=== PATIENT | male | born 1965 | race Caucasian/White ===

== ENCOUNTER 2018-02-21 14:30 | Inpatient (IN) | payer MEDICARE, OTHER ==
[~2018-02-21] VITALS: Ht 182.9 cm; Wt 61.0 kg
[2018-02-21] MEDS ORDERED: SODIUM CHLORIDE FLUSH 10 ML SYR INJ PRN (19:15)
[2018-02-21] MEDS ORDERED: ONDANSETRON HCL INJ 2 MG/ML VIAL IV PRN (19:15)
--- NOTE | 2018-02-21 19:25 | Diagnostic Imaging Report ---
LEFT HUMERUS X-RAY - 2 VIEWS HISTORY: ^L. STUMP WOUND ^[id number] ^[id number] COMPARISON: None available. FINDINGS: Bones: Status post amputation of the distal left humerus. No cortical irregularity at the stump. Osseous alignment is within normal limits. Joints: Severe degenerative changes of the acromioclavicular and glenohumeral joint. Remote posttraumatic deformity of the scapula and humerus. Multiple healed fractures of diffuse left-sided ribs. Soft tissues: Soft tissue defect at the stump. IMPRESSION: Soft tissue defect at the left distal humeral stump without bony abnormalities. Signed by: Dr. Dayana Clay M.D. on 02/21/2018 7:22 PM
--- OUTSIDE RECORDS SUMMARY | 2018-02-21 19:43 | XMS REPORT | Summary of Care ---
Author Author Olu Harden, Sakshi Quinteros Unknown Address Unknown Phone Unavailable Care Team Providers Care Senior Test Analyst Name Role Phone MADAI Vázquez, SIMONE Unavailable Unavailable VIVI Vázquez, HERI Unavailable Unavailable KYA Vázquez, KWAKU Unavailable Unavailable LYSSA Burgos.OIsabel, PANKAJ Unavailable Unavailable PEGGYTER P.A., PETEY Unavailable Unavailable MADAI PEREZ MO, SIMONE Unavailable Unavailable Unavailable Unavailable Functional Status Name Dates Details Functional status health issues are not documented Status: Name Dates Details Cognitive status health issues are not documented Status: Problems Name Dates Details KELLI on CPAP (327.23, G47.33) Status: Active Narcolepsy (347.00, G47.419) Status: Active Shoulder pain (719.41, M25.519) Status: Active Retained orthopedic hardware (V45.89, Z96.9) Status: Active Overuse syndrome of right hand, initial encounter (842.10, S66.911A) Status: Active Rotator cuff tendinitis, right (726.10, M75.81) Status: Active 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, 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 Median nerve neuritis, right (354.1, G56.11) Status: Active Carpal tunnel syndrome (354.0, G56.00) Status: Active Osteomyelitis (730.20, M86.9) Status: Active Soft tissue infection (686.9, L08.9) Status: Active Above elbow amputation status, 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 Quantity: 90 TRINIDAD M.D.HERI * Start : 26-Sep-2012 Active Hydrocodone-Acetaminophen 10-325 MG Oral Tablet TAKE 1 TO 2 TABLETS EVERY 6 HOURS NEEDED FOR PAIN. * Quantity: 120 Refills: 0 TRINIDADSONY VázquezHERI * Start : 20-Jul-2013 Active Butrans 10 MCG/HR Transdermal Patch Weekly PLACE 1 PATCH WEEKLY * Quantity: 4 Refills: 2 TRINIDADSONY Vázquez HERI * Start : 22-Feb-2014 Active Ritalin TABS * Refills: 0 Active Xyrem 500 MG/ML Oral Solution USE DIRECTED. * Quantity: 30 Refills: 0 SIMONE AJ M.D. * Start : 10-Feb-2016 Active Ibuprofen 800 MG Oral Tablet TAKE 1 TABLET EVERY 6 TO 8 HOURS NEEDED. * Quantity: 120 Refills: 1 KYA Vázquez KWAKU * Start : 19-Apr-2016 Active DiazePAM 10 MG Oral Tablet TAKE 1 TABLET 1 HOUR PRIOR TO PROCEDURE. * Quantity: 1 Refills: 0 PETEY RAMIREZ * Start : 19-Apr-2016 Active Ibuprofen 800 MG Oral Tablet TAKE 1 TABLET 3 TIMES DAILY NEEDED. * Quantity: 90 Refills: 0 PANKAJ OMALLEY D.O. * Start : 28-Apr-2016 Active Allergies and Adverse Reactions Name Dates Details No Known Drug Allergies (Allergy) Status: Active Past Medical History Name Dates Details History of carpal tunnel syndrome (V12.49, Z86.69) Status: Resolved Procedures Procedure Dates Details Procedures not documented Immunization Name Dates Details Immunizations not documented Social History Name Dates Details Unknown if ever smoked Vital Signs Date Test Result Details No Known Vitals to report Results Date Description Value Details Results not documented Plan of Care Name Dates Details Planned Observations Planned Goals not documented Interventions Provided Medication Changes* Ibuprofen 800 MG Oral Tablet - Renew Instructions Name Dates Details Instructions not documented Encounters Appointment; SIMONE AJ M.D. Encounter Diagnosis: Problem not documented On: 21-Jan-2016 12:30 Appointment; PETEY HAWKINS P.A. Encounter Diagnosis: Problem not documented On: 19-Apr-2016 10:30 Appointment; LUCIEN FERRER M.D. Encounter Diagnosis: Problem not documented On: 26-Apr-2016 11:00 Appointment; PANKAJ OMALLEY D.O. Encounter Diagnosis: Problem not documented On: 29-Apr-2016 11:00 Appointment; PETEY HAWKINS P.A. Encounter Diagnosis: Problem not documented On: 12-May-2016 11:30 Appointment; KWAKU BOLAND M.D. Encounter Diagnosis: Problem not documented On: 12-May-2016 11:45 Appointment; SIMONE AJ M.D. Encounter Diagnosis: Problem not documented On: 21-Jul-2016 15:00 Appointment; PETEY HAWKINS P.A. Encounter Diagnosis: Problem not documented On: 28-Jul-2016 11:30 Appointment; KWAKU BOLAND M.D. Encounter Diagnosis: Problem not documented On: 29-Sep-2016 10:45 Appointment; KWAKU BOLAND M.D. Encounter Diagnosis: Problem not documented On: 29-Sep-2016 10:45 Appointment; VAISHALI AVALOS P.A. Encounter Diagnosis: Problem not documented On: 23-May-2017 10:15 Appointment; KWAKU BOLAND M.D. Encounter Diagnosis: Problem not documented On: 24-Aug-2017 13:30
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
--- OUTSIDE RECORDS SUMMARY | 2018-02-21 19:43 | XMS REPORT ---
Author Author [facility] Address Unknown Phone Unavailable Care Team Providers Care Ion Implant Machine Operator Name Role Phone Sandor PARIS Unavailable Unavailable CLEO DIAZ Unavailable Unavailable Problems This patient has no known problems. Allergies, Adverse Reactions, Alerts This patient has no known allergies or adverse reactions. Medications This patient has no known medications. Results Test Description Test Time Test Comments Text Results Atomic Results Result Comments HUMERUS LEFT 2+VIEWS 2018-02-21 19:00:00 [facility] [address] [address] Patient Name: GIANFRANCO ESPOSITO MR #: [id number] : 1965 Age/Sex: 52/M Req #: [id number] Adm Physician: Ordered by: UMU PARIS MD Report #: [id number] Location: ER Room/Bed: Procedure: [id number] DX/HUMERUS LEFT 2+VIEWS Exam Date: 02/21/18 Exam Time: 1814 REPORT STATUS: Signed LEFT HUMERUS X-RAY - 2 VIEWS HISTORY: L. STUMP WOUND [id number] COMPARISON: None available. FINDINGS: Bones: Status post amputation of the distal left humerus. No cortical irregularity at the stump. Osseous alignment is within normal limits. Joints: Severe degenerative changes of the acromioclavicular and glenohumeral joint. Remote posttraumatic deformity of the scapula and humerus. Multiple healed fractures of diffuse left-sided ribs. Soft tissues: Soft tissue defect at the stump. IMPRESSION: Soft tissue defect at the left distal humeral stump without bony abnormalities. Signed by: Dr. Andria Quintanilla M.D. on 02/21/2018 7:22 PM Dictated By: ANDRIA QUINTANILLA MD 21 Transcribed By: FIDENCIO on 02/21/181921 COPY TO: UMU PARIS MD CT CERVICAL SPINE W/O CONTRAST 2017-11-14 15:04:08 Examination: CT CERVICAL SPINE WITHOUT CONTRASTHISTORY:Neck injury status post fall.COMPARISON:None.TECHNIQUE: Multidetector helical axial images were obtained without contrastfrom the foramen magnum to T1. Coronal and sagittal reformatted images weredone. Bone and soft tissue windows were evaluated.Dose modulation, iterative reconstruction, and/or weight based adjustment of themA/kV was utilized to reduce the radiation dose to as low as reasonablyachievable.FINDINGS:Alignment:Normal alignment and lordosis..Vertebrae: Normal height and density. No acute fracture, infection orneoplasm..Disc space heights: Normal height..Caliber of spinal canal: Developmentally normal.Posterior fossa and craniocervical junction: Foramen magnum patent. No Chiari 1malformation..Soft tissues: No abnormality..Degenera tive changes:No disc bulge/ herniation or foraminal or canal stenosis.Additional findings:Surgical pins in the left supraclavicular fossa and left mandibular ramus.IMPRESSION:No acute abnormalities.This final report was electronically signed by Dr Susannah Ruiz MD 11/14/20172:57 PMDictated By: MARGARETTE REEDate: 11/14/2017 15:04 CT HEAD W/O CONTRAST 2017-11-14 14:59:58 Examination: CT head without contrastClinical Indication: Status post injury of the left side of the head.Technique: Transaxial noncontrast images from the skull base through the vertexwere obtained. Sagittal and coronal reformatted images were done.Dose modulation, iterative reconstruction, and/or weight based adjustment of themA/kV was utilized to reduce the radiation dose to as low as reasonablyach ievable.Comparison: None.Findings:Scalp: Small left parietal scalp hematoma and laceration. No radiopaque foreignbody.Bones: Intact. No fractures. No blastic or lytic lesions.Brain sulci: Appropriate for patient's age.Ventricles: Normal in size and configuration. No hydrocephalus.Extra-axial space:No abnormalities.Parenchyma:No abnormal densities.No masses, hemorrhage, or acute or chronic cortical-based vascular insults.Suprasellar region: No abnormalities.Craniocervical junction: The foramen magnum is patent. No Chiari onemalformation.Impression:1. Small left parietal scalp hematoma and lacera tion. No radiopaque foreignbody or calvarial fracture.2. No acute intracranial finding, specifically, no hemorrhage.This final report was electronically signed by Dr Susannah Ruiz MD 11/14/20172:53 PMDictated By: Adrian REED: 11/14/2017 14:59
[2018-02-21 19:56] LABS: BASOPHILS # (AUTO) 0.1 (0.0-0.1); BASOPHILS % 0.9 % (0.0-1.0); EOSINOPHILS # (AUTO) 0.4 (0.0-0.4); EOSINOPHILS % 2.9 % (0.0-6.0); HEMATOCRIT 40.8 % (38.2-49.6); HEMOGLOBIN 13.6 g/dL (14.0-18.0); LYMPHOCYTES # (AUTO) 4.3 (1.0-3.2); LYMPHOCYTES % 30.5 % (18.0-39.1); MEAN CORPUSCULAR HEMOGLOBIN 32.8 pg (28-32); MEAN CORPUSCULAR HGB CONC 33.3 g/dL (31-35); MEAN CORPUSCULAR VOLUME 98.3 fL (81-99); MONOCYTES # (AUTO) 1.5 (0.2-0.8); MONOCYTES % 10.5 % (4.4-11.3); NEUTROPHILS # (AUTO) 7.8 (2.1-6.9); NEUTROPHILS % 54.8 % (38.7-80.0); PLATELET COUNT 379 x10e3/uL (140-360); RED BLOOD COUNT 4.15 x10e6/uL (4.3-5.7); RED CELL DISTRIBUTION WIDTH 13.3 % (11.7-14.4)
--- NOTE | 2018-02-21 20:07 | NUR ---
consent signed for picc line and placed on pt's clipboard
[2018-02-21 20:15] LABS: ALANINE AMINOTRANSFERASE 13 IU/L (0-55); ALBUMIN 3.6 g/dL (3.5-5.0); ALKALINE PHOSPHATASE 74 IU/L (40-150); ANION GAP 13.9 mmol/L (8-16); BLOOD UREA NITROGEN 15 mg/dL (7-26); BUN/CREATININE RATIO 18 (6-25); CALCIUM 9.7 mg/dL (8.4-10.2); CARBON DIOXIDE 25 mmol/L (22-29); CHLORIDE 106 mmol/L (98-107); CREATININE, SERUM 0.83 mg/dL (0.72-1.25); EST GLOMERULAR FILTRATION RATE > 60 ML/MIN (60-); GLUCOSE 77 mg/dL (74-118); POTASSIUM 3.9 mmol/L (3.5-5.1); SODIUM 141 mmol/L (136-145)
[2018-02-21] MEDS ORDERED: VANCOMYCIN 1GM/NS 250 ML 250 ML IV SCH (21:00)
[2018-02-21 22:00] VITALS: BP 106/73
[2018-02-21] MEDS ORDERED: PIPER-TAZ 3.375 GM 50 ML IV SCH (22:00)
--- NOTE | 2018-02-21 22:37 | NUR ---
PATIENT RECEIVED FROM EMERGENCY DEPARTMENT PER STRETCHER AT 2130. HE'S ALERT AND ORIENTED X3, NO RESPIRATORY DISTRESS OBSERVED. REDNESS TO THE SPINE, ALLEVYN DRESSING APPLIED TO THE SPINE FOR PRESSURE ULCER PREVENTION. DRESSING INTACT TO THE LEFT ARM STUMP WITH MODERATE AMOUNT OF DRAINAGE AND ODOR OBSERVED, SITE CLEANSE WITH SALINE, WET TO DRY DRESSING APPLIED TO THE STUMP. HE ALSO HAS REDNESS TO THE BUTTOCK, NO PAIN VOICED. HE HAS NO IV ACCESS, AWAITING PICC LINE INSERTION TO ADMINISTER ANTIBIOTICS ORDERED. ORIENTED TO SURROUNDINGS, BED ALARM ON, CALL LIGHT IN EASY REACH, INSTRUCTED TO CALL FOR ASSISTANCE NEEDED.
[2018-02-21 22:55] VITALS: BP 106/73
[2018-02-21] MEDS ORDERED: IBUPROFEN400 MG PO (23:02)
[2018-02-21] MEDS ORDERED: RITALIN10 MG PO (23:02)
[2018-02-21] MEDS ORDERED: CONCERTA54 MG PO (23:02)
--- NOTE | 2018-02-22 00:17 | NUR ---
PICC LINE INSERTED TO THE RIGHT UPPER ARM PER PICC TEAM, AWAITING X-RAY RESULT TO VERIFY PLACEMENT.
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
--- NOTE | 2018-02-22 01:03 | NUR ---
PATIENT IS OFF THE UNIT PER STRETCHER TO RADIOLOGY FOR CT SCAN, WILL ADMINISTER IV ANTIBIOTIC ONCE THE PATIENT GET BACK TO THE UNIT.
[2018-02-22] MEDS: SODIUM CHLORIDE 0.9% 1000ML 1,000 ML IV SCH ×4 (01:35→20:43)
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
[2018-02-22] MEDS ORDERED: SODIUM CHLORIDE 0.9% 50ML 50 ML ONE (02:36)
[2018-02-22] MEDS ORDERED: IOPAMIDOL 370 MG/ML 200 ML INFUS..BTL INJ ONE (02:36)
--- NOTE | 2018-02-22 02:51 | Diagnostic Imaging Report ---
EXAM: CT of the Left Humerus WITH contrast INDICATION: Left Upper Extremity Stump Infection COMPARISON: None. TECHNIQUE: The left humerus was scanned utilizing a multidetector helical scanner after administration of IV contrast. Coronal and sagittal reformations in soft tissue and bone windows were obtained. Routine protocol was performed. IV CONTRAST: 100 mL of Isovue 370 COMPLICATIONS: None RADIATION DOSE: Total DLP: 425.8 mGy*cm CTDIvol has been reviewed. It is below the limits set by the Radiation Protocol Committee (RPC). Dose modulation, iterative reconstruction, and/or weight based adjustment of the mA/kV was utilized to reduce the radiation dose to as low as reasonably achievable. FINDINGS: BONES: Status post amputation of the left arm to the level of the distal humeral diaphysis with disuse demineralization. No erosions, focal demineralization, or periosteal reaction. Ankylosis of the left humeral head with the glenoid and acromion. Multiple old left sided rib fractures. SOFT TISSUES: Soft tissue stranding of the stump likely representing cellulitis. A 1.8 x 0.9 cm peripherally enhancing centrally hypoattenuating collection is noted along the lateral aspect of the stump (axial soft tissue image 94). OTHER: Left apical paraseptal emphysematous changes. Left axillary lymph nodes measure up to 1 cm in short axis, likely reactive. IMPRESSION: 1. No evidence of osteomyelitis. 2. Cellulitis of the left upper extremity stump with possible developing abscess which is too small to drain. Signed by: DR. Aaron Mendez MD on 02/22/2018 2:48 AM
[2018-02-22] MEDS ORDERED: VANCOMYCIN 1GM/NS 250 ML 250 ML IV SCH (03:00)
[2018-02-22 04:00] VITALS: BP 106/71
[2018-02-22] MEDS ORDERED: PIPER-TAZ 3.375 GM 50 ML IV SCH (04:00)
--- NOTE | 2018-02-22 05:00 | NUR ---
NO ACUTE DISTRESS OBSERVED, PATIENT DENIES PAIN TO THE LEFT ARM STUMP. DRESSING INTACT TO THE LEFT ARM STUMP, CALL LIGHT WITHIN EASY REACH.
[2018-02-22 05:20] LABS: BASOPHILS # (AUTO) 0.1 (0.0-0.1); EOSINOPHILS # (AUTO) 0.5 (0.0-0.4); EOSINOPHILS % 3.8 % (0.0-6.0); HEMATOCRIT 34.5 % (38.2-49.6); HEMOGLOBIN 11.7 g/dL (14.0-18.0); LYMPHOCYTES # (AUTO) 4.4 (1.0-3.2); LYMPHOCYTES % 34.5 % (18.0-39.1); MEAN CORPUSCULAR HEMOGLOBIN 33.1 pg (28-32); MEAN CORPUSCULAR HGB CONC 33.9 g/dL (31-35); MEAN CORPUSCULAR VOLUME 97.5 fL (81-99); MONOCYTES # (AUTO) 1.1 (0.2-0.8); MONOCYTES % 8.7 % (4.4-11.3); NEUTROPHILS # (AUTO) 6.7 (2.1-6.9); NEUTROPHILS % 51.8 % (38.7-80.0); PLATELET COUNT 328 x10e3/uL (140-360); RED BLOOD COUNT 3.54 x10e6/uL (4.3-5.7); RED CELL DISTRIBUTION WIDTH 13.2 % (11.7-14.4)
[2018-02-22 05:38] LABS: INR 0.83; PROTHROMBIN TIME 12.2 seconds (11.9-14.5)
[2018-02-22 05:39] LABS: PARTIAL THROMBOPLASTIN TIME 33.5 seconds (23.8-35.5)
[2018-02-22 05:48] LABS: ALANINE AMINOTRANSFERASE 10 IU/L (0-55); ALBUMIN 2.7 g/dL (3.5-5.0); ALBUMIN/GLOBULIN RATIO 0.9 (0.8-2.0); ALKALINE PHOSPHATASE 71 IU/L (40-150); ANION GAP 12.6 mmol/L (8-16); BLOOD UREA NITROGEN 16 mg/dL (7-26); BUN/CREATININE RATIO 19 (6-25); CALCIUM 8.3 mg/dL (8.4-10.2); CARBON DIOXIDE 23 mmol/L (22-29); CHLORIDE 106 mmol/L (98-107); CREATININE, SERUM 0.84 mg/dL (0.72-1.25); EST GLOMERULAR FILTRATION RATE > 60 ML/MIN (60-); GLUCOSE 110 mg/dL (74-118); POTASSIUM 3.6 mmol/L (3.5-5.1); SODIUM 138 mmol/L (136-145)
[2018-02-22 07:52] VITALS: BP 117/69
[2018-02-22] MEDS: PIPER-TAZ 3.375 GM 50 ML IV SCH ×2 (08:15→16:50)
--- NOTE | 2018-02-22 10:29 | NUR ---
ATTEMPTED TO INTERVIEW PATIENT, WROTE NAME ON BOARD PT SLEEPING, DID NOT WANT TO DISTURB SO WILL FOLLOW UP AT LATER TIME. MOTHER IS SHELBY [phone].
[2018-02-22 11:24] VITALS: BP 110/59
[2018-02-22] MEDS ORDERED: IBUPROFEN 400 MG TAB PO PRN (13:30)
[2018-02-22] MEDS ORDERED: INFLUENZA VIRUS VAC SPLIT INJ 0.5 ML SYR IM ONE (13:30)
[2018-02-22] MEDS ORDERED: METHYLPHENIDATE HCL 10 MG TAB PO SCH (13:30)
[2018-02-22] MEDS: NICOTINE 21 MG/EA PATCH TOP SCH (14:25)
[2018-02-22] MEDS: VANCOMYCIN 1GM/NS 250 ML 250 ML IV SCH (14:25)
[2018-02-22 15:17] VITALS: BP 106/64
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
--- NOTE | 2018-02-22 18:27 | NUR ---
NOTIFIED REGARDING CONSULT MD STATES HE WAS NEVER NOTIFIED,
[2018-02-22 20:00] VITALS: BP 108/61
[2018-02-23] VITALS (7 sets, daily range): BP systolic 101–135; BP diastolic 46–86
[2018-02-23] MEDS: PIPER-TAZ 3.375 GM 50 ML IV SCH ×2 (01:24→08:21)
[2018-02-23] MEDS: VANCOMYCIN 1GM/NS 250 ML 250 ML IV SCH ×2 (02:51→14:00)
[2018-02-23] MEDS: SODIUM CHLORIDE 0.9% 1000ML 1,000 ML IV SCH ×3 (03:11→15:04)
--- NOTE | 2018-02-23 03:18 | NUR ---
walking rounds performed on patient. patient is resting comfortably in the bed. no complaints of pain or discomfort noted. will continue to monitor patient.
[2018-02-23] MEDS: METHYLPHENIDATE HCL 54 MG PO SCH (08:26)
[2018-02-23] MEDS: NICOTINE 21 MG/EA PATCH TOP SCH (08:30)
[2018-02-23] MEDS ORDERED: METHYLPHENIDATE HCL 54 MG PO SCH (09:00)
[2018-02-23] MEDS ORDERED: CEFEPIME HCL 1 GM VIAL IV SCH (10:15)
--- NOTE | 2018-02-23 10:15 | NUR ---
Canary Raiser to bedside to discuss plan of care with patient/family. CM/SW role and care transitions discussed. Anticipated discharge plan discussed along with duration of care. CM/SW discussed patients right to make decisions in care. CM/SW work hours given. Patient lives: with dad Nomi Admit/Transfer: thru ED, from home POA/Emergency contact: heather Mondragon [phone] Current/Previous Home Health: none PCP/Follow-up Care: Dr. Guo Current/Previous DME: none; independent Other Services: none Employment Status: self-employed Areas of Concerns: none Referral Needs: none Education Needs: wound care IMM/LEWIS given and signed (if applicable): none at this time Goal for discharge: home; dad will provide transportation CM/SW left business card at the bedside with contact information. Name and number was also written on the patients whiteboard. Patient verbalized understanding of discussion. CM will follow-up with ongoing discharge and transition of care needs
[2018-02-23] MEDS: CEFEPIME 1GM/NS 0.9% 50 ML 50 ML IV SCH ×2 (10:18→22:49)
[2018-02-23] MEDS: METHYLPHENIDATE HCL 10 MG TAB PO SCH ×3 (11:33→22:49)
[2018-02-23] MEDS ORDERED: BACITRACIN 50,000 UNIT VIAL ONE (13:15)
[2018-02-23] MEDS ORDERED: MUPIROCIN 2% OINT 22 GM TUBE ONE (13:55)
[2018-02-23] MEDS ORDERED: VANCOMYCIN 1GM/NS 250 ML 250 ML ONE (14:03)
--- NOTE | 2018-02-23 14:20 | Consultation ---
DATE OF CONSULTATION: REASON FOR CONSULT: Left upper arm amputation stump infection. 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 He wears a prosthesis, which sits on the distal aspect of the humerus and upper arm. He states that about 2 months ago he fell off of a scaffolding while he had his prosthesis on, and he noticed bruising at the distal aspect of the amputation stump. Over the course of the past 2 weeks, this area of bruising has become foul smelling. He has noticed tenderness, warmth and redness of the lower half of the amputation stump. He was self-treating himself with topical antibiotic ointment. The infection progressed to the point where he went to the emergency room on February 21, 2018, and was admitted at approximately 7 p.m. The consult for me was first obtained yesterday afternoon. I am now seeing the patient for amputation stump infection. PAST MEDICAL HISTORY: As noted above. PAST SURGICAL HISTORY: As noted above. PHYSICAL EXAMINATION VITALS: He has a low-grade fever. EXTREMITIES: Exam of the left amputation stump shows cellulitis involving the lower third of the amputation stump. There is a frankly necrotic palpable full-thickness area measuring approximately 5-6 cm in diameter on the most inferior aspect of the stump. Palpitation shows that the distal end of the humerus is directly under this area of necrotic tissue. The patient has no purulent drainage. However, the wound is malodorous. He underwent radiograph and a CT scan, which shows no drainable collection, but significant soft tissue infection. White blood cell count was 14 on admission and is now 13 since starting IV antibiotics. IMPRESSION: Amputation stump infection with probable full-thickness necrosis. PLAN: I have discussed with the patient the need to debride the stump thoroughly. This will most likely leave a full-thickness defect, which cannot be closed primarily, and that the humerus will need to be shortened. He is aware of this and will be kept n.p.o., and taken to the OR later today for urgent treatment. Thank you for allowing me to participate in the care of your patient. Job#: [id number]
[2018-02-23] MEDS ORDERED: ONDANSETRON HCL INJ 2 MG/ML VIAL ONE (18:22)
[2018-02-23] MEDS ORDERED: NEOSTIGMINE 5 MG/5ML SYR ONE (18:22)
[2018-02-23] MEDS ORDERED: MORPHINE SULFATE INJ 10 MG/ML ONE (18:22)
[2018-02-23] MEDS ORDERED: PROPOFOL IV EMULSION 10 MG/ML 20 ML VIAL ONE (18:22)
[2018-02-23] MEDS ORDERED: METOCLOPRAMIDE HCL 10 MG/2ML VIAL ONE (18:22)
[2018-02-23] MEDS ORDERED: GLYCOPYRROLATE INJ 1MG/ 5 ML SYR ONE (18:22)
[2018-02-23] MEDS ORDERED: MIDAZOLAM HCL 2 MG/2 ML VIAL ONE (18:22)
[2018-02-23] MEDS ORDERED: DEXAMETHASONE SOD PHOS INJ 4 MG/ML VIAL ONE (18:22)
[2018-02-23] MEDS ORDERED: SEVOFLURANE INHAL SOLN 250 ML PEN BTL ONE (18:22)
[2018-02-23] MEDS ORDERED: LIDOCAINE HCL 2% LOCAL INJ 5 ML SDV VIAL INJ ONE (18:22)
[2018-02-23] MEDS ORDERED: FENTANYL CITRATE/PF 100MCG/2 ML INJ ONE (18:22)
[2018-02-23] MEDS ORDERED: KETOROLAC TROMETHAMINE 30 MG/ML VIAL ONE (18:22)
[2018-02-23] MEDS ORDERED: SUCCINYLCHOLINE 200 MG/10 ML SYR ONE (18:22)
[2018-02-24] VITALS (7 sets, daily range): BP systolic 110–129; BP diastolic 57–77
[2018-02-24] MEDS: VANCOMYCIN 1GM/NS 250 ML 250 ML IV SCH ×2 (02:03→14:12)
[2018-02-24] MEDS: HYDROCODONE/APAP 5MG-325MG TAB PO PRN ×2 (04:29→10:17)
--- NOTE | 2018-02-24 06:00 | NUR ---
patient complaining of severe pain in the left shoulder. paged, awaiting call back. will continue to monitor patient's pain.
--- NOTE | 2018-02-24 07:05 | NUR ---
walking rounds made with the night nurse, patient aware of shift change. Patient in no distress, call diaz within reach.
[2018-02-24] MEDS: CEFEPIME 1GM/NS 0.9% 50 ML 50 ML IV SCH ×2 (10:00→22:00)
[2018-02-24] MEDS: NICOTINE 21 MG/EA PATCH TOP SCH (10:00)
[2018-02-24] MEDS: METHYLPHENIDATE HCL 10 MG TAB PO SCH ×4 (10:00→22:00)
[2018-02-24] MEDS ORDERED: HOME MEDICATION--PATIENTS OWN ONE (10:12)
[2018-02-24] MEDS: METHYLPHENIDATE HCL 54 MG PO SCH (10:17)
[2018-02-24] MEDS: SODIUM CHLORIDE 0.9% 1000ML 1,000 ML IV SCH ×2 (11:11→18:07)
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
--- NOTE | 2018-02-24 21:05 | NUR ---
NO ACUTE DISTRESS OBSERVED, PATIENT DENIES PAIN. RANI WRAP DRESSING DRY AND INTACT TO THE LEFT ARM STUMP WITH BLEEDING OR DRAINAGE. CALL LIGHT IN EASY REACH, PATIENT INSTRUCTED TO CALL FOR ASSISTANCE NEEDED.
[2018-02-25] VITALS (7 sets, daily range): BP systolic 113–131; BP diastolic 61–89
--- NOTE | 2018-02-25 01:02 | NUR ---
WALKING ROUNDS MADE, RANI WRAP DRESSING OBSERVED WITH MODERATE AMOUNT OF BLOOD. DRESSING REINFORCED WITH 4X4 AND KERLIX, WILL CLOSELY MONITOR THE DRESSING. PATIENT DENIES PAIN, NO RESPIRATORY DISTRESS OBSERVED.
[2018-02-25] MEDS: VANCOMYCIN 1GM/NS 250 ML 250 ML IV SCH ×2 (03:36→13:45)
[2018-02-25] MEDS: SODIUM CHLORIDE 0.9% 1000ML 1,000 ML IV SCH ×2 (07:00→19:14)
--- NOTE | 2018-02-25 07:00 | NUR ---
walking rounds made with night nurse, patient understand nurse change. Patient in no distress, call diaz within reach
--- NOTE | 2018-02-25 08:30 | NUR ---
notified MAURO Marquez concerning patient's vancomycin trough level of 13.3, per Magdi okay to give Vancomycin.
[2018-02-25] MEDS ORDERED: HOME MEDICATION--PATIENTS OWN ONE (09:11)
[2018-02-25] MEDS: METHYLPHENIDATE HCL 54 MG PO SCH (09:12)
[2018-02-25] MEDS: NICOTINE 21 MG/EA PATCH TOP SCH (09:13)
[2018-02-25] MEDS: METHYLPHENIDATE HCL 10 MG TAB PO SCH ×4 (09:13→20:12)
[2018-02-25] MEDS: HYDROCODONE/APAP 5MG-325MG TAB PO PRN ×2 (09:15→20:12)
[2018-02-25] MEDS: CEFEPIME 1GM/NS 0.9% 50 ML 50 ML IV SCH ×2 (10:00→21:30)
--- NOTE | 2018-02-25 18:55 | NUR ---
report given to hourly shift manager nurse, patient aware of change, patient in no distress, alert and oriented. Call diaz within reach
[2018-02-26] VITALS (7 sets, daily range): BP systolic 99–128; BP diastolic 59–68
[2018-02-26] MEDS: VANCOMYCIN 1GM/NS 250 ML 250 ML IV SCH ×2 (01:16→17:50)
[2018-02-26] MEDS: SODIUM CHLORIDE 0.9% 1000ML 1,000 ML IV SCH ×4 (01:17→21:19)
--- NOTE | 2018-02-26 07:05 | NUR ---
rounded with the car shifter nurse, patient aware of change. Patient in no distress, call diaz within reach, bed in lowest position.
[2018-02-26] MEDS: HYDROCODONE/APAP 5MG-325MG TAB PO PRN ×2 (07:25→17:15)
[2018-02-26] MEDS: METHYLPHENIDATE HCL 54 MG PO SCH (09:15)
[2018-02-26] MEDS: METHYLPHENIDATE HCL 10 MG TAB PO SCH ×4 (09:15→21:19)
[2018-02-26] MEDS: NICOTINE 21 MG/EA PATCH TOP SCH (09:15)
[2018-02-26] MEDS ORDERED: HOME MEDICATION--PATIENTS OWN ONE (09:16)
[2018-02-26] MEDS: CEFEPIME 1GM/NS 0.9% 50 ML 50 ML IV SCH ×2 (10:15→21:19)
--- NOTE | 2018-02-26 16:00 | NUR ---
Paged Dr Armando concerning patient's vancomycin level of 13.9, awaiting call back concerning orders.
--- NOTE | 2018-02-26 17:26 | NUR ---
received a call back from Dr Armando concerning patient's vancomycin trough of 13.9, per MD mayer to give vancomycin
--- NOTE | 2018-02-26 19:10 | NUR ---
Report given to oncoming shift and walking rounds done.
[2018-02-27] VITALS (7 sets, daily range): BP systolic 117–152; BP diastolic 67–90
[2018-02-27] MEDS: VANCOMYCIN 1GM/NS 250 ML 250 ML IV SCH ×2 (01:09→13:21)
[2018-02-27] MEDS: METHYLPHENIDATE HCL 10 MG TAB PO SCH ×4 (07:53→21:59)
[2018-02-27] MEDS: SODIUM CHLORIDE 0.9% 1000ML 1,000 ML IV SCH (07:53)
[2018-02-27] MEDS: NICOTINE 21 MG/EA PATCH TOP SCH (07:53)
[2018-02-27] MEDS: METHYLPHENIDATE HCL 54 MG PO SCH ×2 (07:58→13:22)
--- NOTE | 2018-02-27 07:59 | NUR ---
pt resting in bed, no s/s distress. pt takes his concerta from home. will continue to monitor.
[2018-02-27] MEDS: HYDROCODONE/APAP 5MG-325MG TAB PO PRN ×2 (08:59→21:06)
[2018-02-27] MEDS ORDERED: NEOMYCIN/POLYMYXIN/BACITRACIN 15 GM TUBE TOP PRN (09:45)
--- NOTE | 2018-02-27 09:47 | NUR ---
Dr Vasquez rounded, dressing change done.
[2018-02-27] MEDS: CEFEPIME 1GM/NS 0.9% 50 ML 50 ML IV SCH ×2 (10:19→22:14)
[2018-02-27 11:21] LABS: BASOPHILS # (AUTO) 0.2 (0.0-0.1); BASOPHILS % 1.5 % (0.0-1.0); EOSINOPHILS # (AUTO) 0.4 (0.0-0.4); HEMATOCRIT 34.8 % (38.2-49.6); HEMOGLOBIN 11.7 g/dL (14.0-18.0); LYMPHOCYTES # (AUTO) 3.2 (1.0-3.2); LYMPHOCYTES % 30.1 % (18.0-39.1); MEAN CORPUSCULAR HEMOGLOBIN 32.1 pg (28-32); MEAN CORPUSCULAR HGB CONC 33.6 g/dL (31-35); MEAN CORPUSCULAR VOLUME 95.6 fL (81-99); MONOCYTES # (AUTO) 1.2 (0.2-0.8); MONOCYTES % 10.8 % (4.4-11.3); NEUTROPHILS # (AUTO) 5.7 (2.1-6.9); NEUTROPHILS % 53.3 % (38.7-80.0); PLATELET COUNT 429 x10e3/uL (140-360); RED BLOOD COUNT 3.64 x10e6/uL (4.3-5.7); RED CELL DISTRIBUTION WIDTH 12.9 % (11.7-14.4)
--- NOTE | 2018-02-27 11:54 | NUR ---
CM SPOKE TO PATIENT AT BEDSIDE REGARDING [facility] EVALUATION. PATIENT INFORMED OF [employer] ACUTE CARE SERVICES. PATIENT GIVEN CHOICE AND CHOOSES [facility] CHOICE LETTER SIGNED AND PLACED IN FRONT OF CHART. BACILIO GASPAR, [facility] LIAISON PICKED UP CLINICAL. PENDING AUTH AND FACILITY APPROVAL FOR TRANSFER. MOT INITIATED AND PLACED IN PACKET ON FRONT OF CHART. PATIENT [facility]GING TO [facility]: [facility] Address: [address] [facility] [place] [address]
--- NOTE | 2018-02-27 13:21 | NUR ---
pt home medications in [facility] (ritalin). mother at bedside, pt pending transfer to [facility] and asked for meds. bag given unopened to pt and his mother.
--- NOTE | 2018-02-27 14:14 | NUR ---
Nutrition Screen Note RD Recommendation for Physician: -Rec regular diet as medically appropriate (no PMH indicate for cardiac diet) Plan of Care: RD following, monitoring for tolerance and adequacy Nutrition reason for involvement: LOS Primary Diagnose(s): Left upper arm amputation stump infection PMH: [id number] amputation on the left Ht: 72in Wt: 134.33lb BMI: 18.2kg/m2 IBW: 174lb RD Assessment: (02/27) Chart reviewed. Labs and meds reviewed. 52yo M, who is admitted for left upper arm amputation stump infection. Visited pt in the room during lunch and pt ate 100% of his meal. Pt reports great appetite. 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 No recent weight loss reported. No GI complains noted. LBM 02/26. Pt denies any chewing or swallowing difficulty. Will continue to monitor and follow. Current Diet: cardiac diet Malnutrition Evaluation (02/27/18) The patient does not meet criteria for a specified degree of malnutrition at this time. Will re-evaluate at follow-up as appropriate. Diet Education Needs Assessment: Diet education not indicated. Nutrition Care Level: low Signed: Hazel Razo, MS, RD, LD
--- NOTE | 2018-02-27 16:19 | NUR ---
attempted to call report, nurse at receiving station for transfer stated they werent getting any new admits until after 7, explained i needed to call report and transportation would likely take an hour to arrive. was placed on hold and then disconnected. updated house sup, was advised could call and have transferred close to that timeframe for facility. called back to update receiving facility, same nurse refused to speak and trans to sup. educated sup as courtesy we would call report at 1800 and trans after shift change. notified [facility] of delay in transfer.
[2018-02-27] MEDS ORDERED: NEOMYCIN/POLYMYX/BACITR OINT 0.9 GM PKT TOP ONE (17:58)
--- NOTE | 2018-02-27 18:31 | NUR ---
report called to [facility] [place].
--- NOTE | 2018-02-27 23:06 | NUR ---
patient has left facility enroute to [facility]. patient left via stretcher. patient was awake and talking upon leaving facility.
== END 2018-02-27 22:50 | DRG 474 ==
LOC: ER 14:30 → ERHOLD 19:41 → IMCU 21:30
PROC: 02HV33Z Insertion of Infusion Device into Superior Vena Cava, Percutaneous Approach (ICD-10-PCS; 2018-02-21)
PROC: 0X6 Anatomical Regions, Upper Extremities, Detachment (ICD-10-PCS; principal; 2018-02-24)
DX: T87.42 Infection of amputation stump, left upper extremity (principal); A41.9 Sepsis, unspecified organism; M86.8X2 Other osteomyelitis, upper arm; B96.89 Other specified bacterial agents as the cause of diseases classified elsewhere; J44.9 Chronic obstructive pulmonary disease, unspecified; F98.8 Other specified behavioral and emotional disorders with onset usually occurring in childhood and adolescence
CPT/HCPCS: 36415; 36569; 71045; 76000; 80053; 80202; 85025; 85610; 85651; 85730; 86140; 87040; 87071; 87075; 87186; 87205; 88304; 88311; 93005; 96361; 96367; 99284; J0692; J1100; J1885; J2001; J2250; J2270; J2405; J2543; J2765; J3370; J7030; Q9967

== ENCOUNTER → 2018-03-13 | Outpatient (RCR) | payer MEDICARE, OTHER ==
[~2018-03-13] MED LIST: CONCERTA54 MG PO; IBUPROFEN400 MG PO; RITALIN10 MG PO
== END ==
LOC: WCC 15:09
PROVIDERS: ATTEND Plastic Surgery
DX: T87.89 Other complications of amputation stump (principal); I10 Essential (primary) hypertension; J44.9 Chronic obstructive pulmonary disease, unspecified; Y92.410 Unspecified street and highway as the place of occurrence of the external cause

== ENCOUNTER 2018-04-03 10:20 | Outpatient (RCR) | payer MEDICARE, OTHER ==
[2018-04-03] MEDS ORDERED: MUPIROCIN 2% OINT 22 GM TUBE ONE (17:17)
== END 2018-04-13 ==
LOC: WCC 10:20
PROVIDERS: ATTEND Plastic Surgery
DX: T87.89 Other complications of amputation stump (principal); I10 Essential (primary) hypertension; J44.9 Chronic obstructive pulmonary disease, unspecified; Y92.410 Unspecified street and highway as the place of occurrence of the external cause

== ENCOUNTER 2018-05-29 12:51 | Outpatient (RCR) | payer MEDICARE, OTHER ==
[2018-05-29] MEDS ORDERED: MUPIROCIN 2% OINT 22 GM TUBE ONE (18:33)
== END 2018-06-11 ==
LOC: WCC 12:51
PROVIDERS: ATTEND Plastic Surgery
DX: T87.89 Other complications of amputation stump (principal); Y92.410 Unspecified street and highway as the place of occurrence of the external cause; I10 Essential (primary) hypertension; J44.9 Chronic obstructive pulmonary disease, unspecified

== ENCOUNTER 2024-07-08 09:37 | Inpatient (IN) | payer MEDICARE, OTHER ==
[~2024-07-08] VITALS: Ht 175.3 cm; Wt 59.0 kg
[2024-07-08] MEDS: SODIUM CHLORIDE 0.9% 1000ML 1,000 ML IV STA (10:05)
[2024-07-08 10:15] VITALS: TEMP 97.2
[2024-07-08 10:17] LABS: BASOPHILS # (AUTO) 0.2 (0.0-0.1); BASOPHILS % 1.6 % (0.0-1.0); EOSINOPHILS # (AUTO) 0.3 (0.0-0.4); HEMATOCRIT 45.2 % (38.2-49.6); HEMOGLOBIN 14.8 g/dL (14.0-18.0); LYMPHOCYTES # (AUTO) 3.3 (1.0-3.2); LYMPHOCYTES % 33.3 % (18.0-39.1); MEAN CORPUSCULAR HEMOGLOBIN 31.9 pg (28-32); MEAN CORPUSCULAR HGB CONC 32.7 g/dL (31-35); MEAN CORPUSCULAR VOLUME 97.4 fL (81-99); MONOCYTES # (AUTO) 1.2 (0.2-0.8); NEUTROPHILS # (AUTO) 4.9 (2.1-6.9); NEUTROPHILS % 49.8 % (38.7-80.0); PLATELET COUNT 339 x10e3/uL (140-360); RED BLOOD COUNT 4.64 x10e6/uL (4.3-5.7); RED CELL DISTRIBUTION WIDTH 13.5 % (11.7-14.4); WHITE BLOOD COUNT 9.77 x10e3/uL (4.8-10.8)
[2024-07-08 10:48] LABS: ALBUMIN 3.6 g/dL (3.5-5.0); ALBUMIN/GLOBULIN RATIO 1.1 (0.8-2.0); ANION GAP 17.3 mmol/L (8-16); BILIRUBIN,TOTAL 0.6 mg/dL (0.2-1.2); CREATININE, SERUM 0.99 mg/dL (0.72-1.25); POTASSIUM 4.3 mmol/L (3.5-5.1); TOTAL PROTEIN 6.8 g/dL (6.5-8.1)
[2024-07-08] MEDS ORDERED: IOPAMIDOL 370 MG/ML 100 ML INFUS..BTL INJ ONE (11:12)
[2024-07-08 12:49] VITALS: PULSE 68; RESP 19
[2024-07-08] MEDS: SODIUM CHLORIDE 0.9% 1000ML 1,000 ML IV SCH (13:05)
[2024-07-08 13:14] LABS: TROPONIN I 0.006 ng/mL (0-0.300)
[2024-07-08] MEDS ORDERED: GABAPENTIN300 MG PO (14:54)
[2024-07-08 15:59] VITALS: BP 125/82; PULSE 68; RESP 19; TEMP 97.7; O2SAT 100
[2024-07-08] MEDS: METHYLPHENIDATE HCL 10 MG TAB PO SCH (17:45)
[2024-07-08] MEDS: IBUPROFEN 400 MG TAB PO PRN (20:15)
[2024-07-08] MEDS: GABAPENTIN 300 MG CAP PO SCH (20:15)
[2024-07-09] VITALS (7 sets, daily range): BP systolic 101–156; BP diastolic 78–87; PULSE 65–84; RESP 14–18; TEMP 97.5–98.2; O2SAT 97–99
[2024-07-09 07:49] LABS: BASOPHILS # (AUTO) 0.2 (0.0-0.1); BASOPHILS % 1.9 % (0.0-1.0); EOSINOPHILS # (AUTO) 0.6 (0.0-0.4); EOSINOPHILS % 6.8 % (0.0-6.0); HEMATOCRIT 37.4 % (38.2-49.6); HEMOGLOBIN 12.4 g/dL (14.0-18.0); LYMPHOCYTES # (AUTO) 3.6 (1.0-3.2); LYMPHOCYTES % 44.2 % (18.0-39.1); MEAN CORPUSCULAR HEMOGLOBIN 31.9 pg (28-32); MEAN CORPUSCULAR HGB CONC 33.2 g/dL (31-35); MEAN CORPUSCULAR VOLUME 96.1 fL (81-99); MONOCYTES # (AUTO) 0.9 (0.2-0.8); MONOCYTES % 10.7 % (4.4-11.3); NEUTROPHILS # (AUTO) 2.9 (2.1-6.9); NEUTROPHILS % 36.3 % (38.7-80.0); PLATELET COUNT 335 x10e3/uL (140-360); RED BLOOD COUNT 3.89 x10e6/uL (4.3-5.7); RED CELL DISTRIBUTION WIDTH 13.1 % (11.7-14.4); WHITE BLOOD COUNT 8.03 x10e3/uL (4.8-10.8)
[2024-07-09 08:13] LABS: ALBUMIN/GLOBULIN RATIO 1.3 (0.8-2.0); ANION GAP 11.3 mmol/L (8-16); BILIRUBIN,TOTAL 0.6 mg/dL (0.2-1.2); CREATININE, SERUM 0.81 mg/dL (0.72-1.25); POTASSIUM 4.3 mmol/L (3.5-5.1); TOTAL PROTEIN 5.3 g/dL (6.5-8.1)
[2024-07-09 08:20] LABS: TROPONIN I 0.006 ng/mL (0-0.300)
[2024-07-09] MEDS ORDERED: METHYLPHENIDATE HCL 54 MG PO SCH (09:00)
[2024-07-09 09:56] LABS: BILIRUBIN,URINE NEGATIVE (NEGATIVE); CLARITY,URINE SL CLOUDY (CLEAR); COLOR,URINE YELLOW (YELLOW); GLUCOSE, URINE NEGATIVE (NEGATIVE); KETONES,URINE NEGATIVE (NEGATIVE); LEUKOCYTE ESTERASE ,URINE SMALL (NEGATIVE); NITRITE,URINE POSITIVE (NEGATIVE); PH,URINE 6.5 (5 - 7); PROTEIN,URINE DIPSTICK NEGATIVE (NEGATIVE); URINE UROBILINOGEN 0.2 mg/dL (0.2 - 1)
[2024-07-09 09:59] LABS: AMPHETAMINES SCREEN,URINE POSITIVE (NEGATIVE); BENZODIAZEPINES SCREEN,URINE NEGATIVE (NEGATIVE); CANNABINOIDS SCREEN,URINE NEGATIVE (NEGATIVE); COCAINE SCREEN,URINE NEGATIVE (NEGATIVE); METHADONE SCREEN, URINE NEGATIVE (NEGATIVE); OPIATES SCREEN,URINE NEGATIVE (NEGATIVE); PHENCYCLIDINE SCREEN,URINE NEGATIVE (NEGATIVE)
[2024-07-09 10:11] LABS: BACTERIA,URINE MANY /HPF; EPITHELIAL CELLS,URINE RARE /LPF; RBC,URINE 0-5 /HPF (0-5); WBC,URINE (MAN) >50 /HPF (0-5)
[2024-07-09 10:40] LABS: EOSINOPHILS % (MANUAL) 6 % (0-7); LYMPHOCYTES % (MANUAL) 46 % (19-48); MONOCYTES % (MANUAL) 11 % (3.4-9.0); NEUTROPHILS % (MANUAL) 37 % (40-74); PLATELET ESTIMATE ADEQUATE
[2024-07-09 10:41] LABS: PLATELET MORPHOLOGY COMMENT FEW LARGE
[2024-07-09] MEDS: COLLAGENASE 5 GM TUBE TOP SCH (13:27)
[2024-07-09 16:01] LABS: TROPONIN I 0.001 ng/mL (0-0.300)
[2024-07-10] VITALS (7 sets, daily range): BP systolic 110–146; BP diastolic 55–88; PULSE 59–71; RESP 16–19; TEMP 97.5–98.9; O2SAT 97–100
[2024-07-10] MEDS: Morphine 4mg INJECTION 4 MG/ML INJ IV PRN (03:59)
[2024-07-10] MEDS: SERTRALINE HCL 50 MG TAB PO SCH (08:47)
[2024-07-10] MEDS: ONDANSETRON HCL INJ 2MG/ML 2ML 2 MG/ML VIAL IV PRN (20:05)
[2024-07-11] VITALS (7 sets, daily range): BP systolic 103–146; BP diastolic 65–87; PULSE 59–69; RESP 16–20; TEMP 97.5–98.2; O2SAT 59–100
[2024-07-12] VITALS (9 sets, daily range): BP systolic 91–117; BP diastolic 61–76; PULSE 50–70; RESP 15–19; TEMP 97.6–98; O2SAT 95–100
[2024-07-12 08:22] LABS: ALBUMIN 2.4 g/dL (3.5-5.0); ALBUMIN/GLOBULIN RATIO 1.3 (0.8-2.0); ANION GAP 8.1 mmol/L (8-16); BILIRUBIN,TOTAL 0.5 mg/dL (0.2-1.2); CREATININE, SERUM 0.53 mg/dL (0.72-1.25); MAGNESIUM 1.3 MG/DL (1.3-2.1); TOTAL PROTEIN 4.2 g/dL (6.5-8.1)
[2024-07-12 08:29] LABS: POTASSIUM 3.1 mmol/L (3.5-5.1)
[2024-07-12 08:30] LABS: CALCIUM 5.8 mg/dL (8.4-10.2)
[2024-07-12 08:34] LABS: BASOPHILS # (AUTO) 0.1 (0.0-0.1); BASOPHILS % 1.1 % (0.0-1.0); EOSINOPHILS # (AUTO) 0.2 (0.0-0.4); EOSINOPHILS % 1.8 % (0.0-6.0); HEMATOCRIT 27.5 % (38.2-49.6); HEMOGLOBIN 8.8 g/dL (14.0-18.0); LYMPHOCYTES # (AUTO) 2.5 (1.0-3.2); LYMPHOCYTES % 24.1 % (18.0-39.1); MEAN CORPUSCULAR HEMOGLOBIN 31.8 pg (28-32); MEAN CORPUSCULAR VOLUME 99.3 fL (81-99); MONOCYTES # (AUTO) 1.1 (0.2-0.8); MONOCYTES % 10.9 % (4.4-11.3); NEUTROPHILS # (AUTO) 6.4 (2.1-6.9); NEUTROPHILS % 61.8 % (38.7-80.0); PLATELET COUNT 246 x10e3/uL (140-360); RED BLOOD COUNT 2.77 x10e6/uL (4.3-5.7); WHITE BLOOD COUNT 10.42 x10e3/uL (4.8-10.8)
[2024-07-12 10:48] LABS: EOSINOPHILS % (MANUAL) 2 % (0-7); LYMPHOCYTES % (MANUAL) 31 % (19-48); MONOCYTES % (MANUAL) 11 % (3.4-9.0); NEUTROPHILS % (MANUAL) 55 % (40-74); REACTIVE LYMPHOCYTES 1
[2024-07-12 10:51] LABS: PLATELET ESTIMATE ADEQUATE; PLATELET MORPHOLOGY COMMENT FEW LARGE; RBC MORPHOLOGY COMMENT NORMAL
[2024-07-12] MEDS ORDERED: PROPOFOL IV EMULSION 50 ML IV ONE (11:21)
[2024-07-12] MEDS ORDERED: SUCCINYLCHOLINE CHLORIDE 20 MG/ML 10ML VIAL ONE (11:21)
[2024-07-12] MEDS ORDERED: PHENYLEPHRINE HCL 1% 10 MG/ML VIAL ONE (11:21)
[2024-07-12] MEDS ORDERED: FENTANYL CITRATE/PF 100MCG/2 ML INJ ONE ×2 (11:21→12:25)
[2024-07-12] MEDS ORDERED: MIDAZOLAM HCL 2 MG/2 ML VIAL ONE ×2 (11:21→12:25)
[2024-07-12] MEDS ORDERED: SODIUM CHLORIDE 0.9% 100 ML ONE (11:22)
[2024-07-12] MEDS: DEXTROSE 5%/0.9% SOD CHL 1,000 ML IV SCH (14:07)
[2024-07-12] MEDS: ONDANSETRON HCL INJ 2MG/ML 2ML 2 MG/ML VIAL ONE (14:56)
[2024-07-13] VITALS (9 sets, daily range): BP systolic 90–148; BP diastolic 47–80; PULSE 55–74; RESP 18–20; TEMP 97–98.4; O2SAT 95–100
[2024-07-13] MEDS: METOCLOPRAMIDE HCL 10 MG/2ML VIAL IV SCH
[2024-07-13 07:06] LABS: BASOPHILS # (AUTO) 0.1 (0.0-0.1); BASOPHILS % 0.6 % (0.0-1.0); EOSINOPHILS # (AUTO) 0.1 (0.0-0.4); EOSINOPHILS % 0.8 % (0.0-6.0); HEMOGLOBIN 12.5 g/dL (14.0-18.0); LYMPHOCYTES # (AUTO) 2.9 (1.0-3.2); LYMPHOCYTES % 17.1 % (18.0-39.1); MEAN CORPUSCULAR HGB CONC 32.9 g/dL (31-35); MEAN CORPUSCULAR VOLUME 97.2 fL (81-99); MONOCYTES # (AUTO) 1.3 (0.2-0.8); MONOCYTES % 7.9 % (4.4-11.3); NEUTROPHILS # (AUTO) 12.5 (2.1-6.9); NEUTROPHILS % 73.1 % (38.7-80.0); PLATELET COUNT 322 x10e3/uL (140-360); RED BLOOD COUNT 3.91 x10e6/uL (4.3-5.7); RED CELL DISTRIBUTION WIDTH 12.8 % (11.7-14.4)
[2024-07-13 07:10] LABS: WHITE BLOOD COUNT 17.06 x10e3/uL (4.8-10.8)
[2024-07-13 07:40] LABS: ALBUMIN 3.1 g/dL (3.5-5.0); ALBUMIN/GLOBULIN RATIO 1.2 (0.8-2.0); ANION GAP 12.7 mmol/L (8-16); CALCIUM 8.1 mg/dL (8.4-10.2); CREATININE, SERUM 0.75 mg/dL (0.72-1.25); MAGNESIUM 1.7 MG/DL (1.3-2.1); POTASSIUM 3.7 mmol/L (3.5-5.1); TOTAL PROTEIN 5.6 g/dL (6.5-8.1)
[2024-07-13 09:08] LABS: LYMPHOCYTES % (MANUAL) 13 % (19-48); MONOCYTES % (MANUAL) 11 % (3.4-9.0); NEUTROPHILS % (MANUAL) 75 % (40-74); REACTIVE LYMPHOCYTES 1
[2024-07-13 09:09] LABS: PLATELET ESTIMATE ADEQUATE; PLATELET MORPHOLOGY COMMENT NORMAL; RBC MORPHOLOGY COMMENT NORMAL
[2024-07-13] MEDS: SODIUM CHLORIDE 0.9% 1000ML 1,770 ML IV ONE (10:04)
[2024-07-14] VITALS (7 sets, daily range): BP systolic 90–109; BP diastolic 47–72; PULSE 57–78; RESP 18–20; TEMP 97.6–98.4; O2SAT 96–100
[2024-07-14] MEDS: SODIUM CHLORIDE 0.9% 1000ML 1,770 ML IV ONE (09:51)
[2024-07-15] VITALS (7 sets, daily range): BP systolic 99–123; BP diastolic 58–78; PULSE 55–70; RESP 17–19; TEMP 97.6–98.5; O2SAT 96–98
[2024-07-15 05:19] LABS: BASOPHILS # (AUTO) 0.2 (0.0-0.1); BASOPHILS % 1.2 % (0.0-1.0); EOSINOPHILS # (AUTO) 0.5 (0.0-0.4); HEMATOCRIT 35.1 % (38.2-49.6); HEMOGLOBIN 11.4 g/dL (14.0-18.0); LYMPHOCYTES # (AUTO) 4.1 (1.0-3.2); LYMPHOCYTES % 30.9 % (18.0-39.1); MEAN CORPUSCULAR HGB CONC 32.5 g/dL (31-35); MEAN CORPUSCULAR VOLUME 98.6 fL (81-99); MONOCYTES # (AUTO) 1.3 (0.2-0.8); MONOCYTES % 9.8 % (4.4-11.3); NEUTROPHILS # (AUTO) 7.1 (2.1-6.9); NEUTROPHILS % 53.8 % (38.7-80.0); PLATELET COUNT 281 x10e3/uL (140-360); RED BLOOD COUNT 3.56 x10e6/uL (4.3-5.7); RED CELL DISTRIBUTION WIDTH 12.8 % (11.7-14.4); WHITE BLOOD COUNT 13.12 x10e3/uL (4.8-10.8)
[2024-07-15 05:32] LABS: ALBUMIN 2.5 g/dL (3.5-5.0); ANION GAP 12.4 mmol/L (8-16); BILIRUBIN,TOTAL 0.3 mg/dL (0.2-1.2); CALCIUM 8.1 mg/dL (8.4-10.2); CREATININE, SERUM 0.74 mg/dL (0.72-1.25); TOTAL PROTEIN 5.1 g/dL (6.5-8.1)
[2024-07-15 05:47] LABS: POTASSIUM 3.4 mmol/L (3.5-5.1)
[2024-07-16] VITALS (7 sets, daily range): BP systolic 102–136; BP diastolic 57–76; PULSE 57–95; RESP 18–19; TEMP 97.7–98; O2SAT 94–100
[2024-07-16] MEDS: Morphine 4mg INJECTION 4 MG/ML INJ IV PRN (03:18)
[2024-07-16] MEDS: METHYLPHENIDATE HCL 10 MG TAB PO SCH (11:19)
[2024-07-17] VITALS: BP 119/63; PULSE 66; RESP 18; TEMP 98.6; O2SAT 98
[2024-07-17 04:00] VITALS: BP 131/74; PULSE 60; RESP 18; TEMP 97.8; O2SAT 98
[2024-07-17 05:40] LABS: BASOPHILS # (AUTO) 0.2 (0.0-0.1); BASOPHILS % 1.6 % (0.0-1.0); EOSINOPHILS # (AUTO) 0.7 (0.0-0.4); HEMATOCRIT 34.9 % (38.2-49.6); HEMOGLOBIN 11.6 g/dL (14.0-18.0); LYMPHOCYTES # (AUTO) 4.1 (1.0-3.2); LYMPHOCYTES % 39.7 % (18.0-39.1); MEAN CORPUSCULAR HEMOGLOBIN 32.3 pg (28-32); MEAN CORPUSCULAR HGB CONC 33.2 g/dL (31-35); MEAN CORPUSCULAR VOLUME 97.2 fL (81-99); MONOCYTES # (AUTO) 1.4 (0.2-0.8); MONOCYTES % 13.1 % (4.4-11.3); NEUTROPHILS % 38.4 % (38.7-80.0); PLATELET COUNT 358 x10e3/uL (140-360); RED BLOOD COUNT 3.59 x10e6/uL (4.3-5.7); RED CELL DISTRIBUTION WIDTH 12.7 % (11.7-14.4); WHITE BLOOD COUNT 10.39 x10e3/uL (4.8-10.8)
[2024-07-17 06:25] LABS: ALBUMIN 2.6 g/dL (3.5-5.0); ANION GAP 11.7 mmol/L (8-16); BILIRUBIN,TOTAL 0.5 mg/dL (0.2-1.2); CALCIUM 8.1 mg/dL (8.4-10.2); CREATININE, SERUM 0.71 mg/dL (0.72-1.25); MAGNESIUM 1.6 MG/DL (1.3-2.1); POTASSIUM 3.7 mmol/L (3.5-5.1); TOTAL PROTEIN 5.1 g/dL (6.5-8.1)
[2024-07-17 08:27] VITALS: BP 135/77; PULSE 59; RESP 19; TEMP 97.7; O2SAT 100
[2024-07-17] MEDS: METHYLPHENIDATE HCL 54 MG PO SCH (09:00)
[2024-07-17 09:28] LABS: EOSINOPHILS % (MANUAL) 5 % (0-7); LYMPHOCYTES % (MANUAL) 43 % (19-48); MONOCYTES % (MANUAL) 9 % (3.4-9.0); NEUTROPHILS % (MANUAL) 40 % (40-74); REACTIVE LYMPHOCYTES 3
[2024-07-17 09:29] LABS: PLATELET ESTIMATE ADEQUATE; PLATELET MORPHOLOGY COMMENT NORMAL; RBC MORPHOLOGY COMMENT NORMAL
[2024-07-17 11:56] VITALS: BP 126/81; PULSE 56; RESP 19; TEMP 97.9; O2SAT 100
[2024-07-17 23:24] VITALS: BP 126/60; PULSE 62; RESP 18; TEMP 98.3; O2SAT 99
[2024-07-18 02:54] VITALS: BP 125/75; PULSE 62; RESP 18; TEMP 98.1; O2SAT 100
[2024-07-18 08:17] VITALS: BP 126/75; PULSE 58; RESP 19; TEMP 98.2; O2SAT 97
[2024-07-18 11:45] VITALS: BP 142/72; PULSE 65; RESP 18; TEMP 98; O2SAT 100
[2024-07-18 15:55] VITALS: BP 159/80; PULSE 58; RESP 19; TEMP 97.3; O2SAT 96
[2024-07-18 20:00] VITALS: BP 112/57; PULSE 64; RESP 18; TEMP 98; O2SAT 98
[2024-07-18 21:00] VITALS: BP 112/57; PULSE 64; RESP 18; TEMP 98; O2SAT 98
[2024-07-19] VITALS (7 sets, daily range): BP systolic 96–130; BP diastolic 61–77; PULSE 58–90; RESP 18; TEMP 97.7–98.2; O2SAT 99–100
[2024-07-19 07:06] LABS: INR 0.89; PROTHROMBIN TIME 12.6 seconds (11.9-14.5)
[2024-07-19 07:07] LABS: PARTIAL THROMBOPLASTIN TIME 32.7 seconds (23.8-35.5)
[2024-07-19] MEDS ORDERED: ROCURONIUM BROMIDE 0 ML IV ONE (07:18)
[2024-07-19] MEDS ORDERED: FENTANYL CITRATE/PF 100MCG/2 ML INJ ONE (07:18)
[2024-07-19] MEDS ORDERED: LIDOCAINE HCL 2% LOCAL INJ 5 ML SDV VIAL INJ ONE (07:18)
[2024-07-19] MEDS ORDERED: ACETAMINOPHEN 1000 MG/100 ML 100 ML IV ONE (07:19)
[2024-07-19] MEDS ORDERED: PROPOFOL IV EMULSION 10 MG/ML 20 ML VIAL ONE (07:19)
[2024-07-19] MEDS ORDERED: SEVOFLURANE INHAL SOLN 250 ML PEN BTL ONE (07:19)
[2024-07-19] MEDS ORDERED: MIDAZOLAM HCL 2 MG/2 ML VIAL ONE (07:19)
[2024-07-19] MEDS ORDERED: SUCCINYLCHOLINE CHLORIDE 20 MG/ML 10ML VIAL ONE (08:58)
[2024-07-19] MEDS ORDERED: PROPOFOL IV EMULSION 50 ML IV ONE (09:37)
[2024-07-19] MEDS ORDERED: SODIUM CHLORIDE 0.9% 100 ML ONE (10:07)
[2024-07-19] MEDS ORDERED: PHENYLEPHRINE HCL 1% 10 MG/ML VIAL ONE (10:08)
[2024-07-19] MEDS ORDERED: ONDANSETRON HCL INJ 2MG/ML 2ML 2 MG/ML VIAL ONE (10:17)
[2024-07-19] MEDS ORDERED: DEXAMETHASONE SOD PHOS INJ 4 MG/ML SDV ONE (10:17)
[2024-07-19] MEDS ORDERED: MORPHINE SULFATE 5 MG/ML VIAL IM PRN (12:30)
[2024-07-19] MEDS ORDERED: MAGNESIUM/ALUMINUM/SIMETHICONE 30 ML UDC PO PRN (12:30)
[2024-07-19] MEDS ORDERED: ONDANSETRON HCL INJ 2MG/ML 2ML 2 MG/ML VIAL IV PRN (12:30)
[2024-07-19] MEDS ORDERED: PROMETHAZINE HCL (IM) 25 MG/ML VIAL IM PRN (12:30)
[2024-07-19] MEDS: LACTATED RINGER'S 1,000 ML IV SCH (12:30)
[2024-07-19] MEDS ORDERED: CEPACOL SORE THROAT LOZENGES PO PRN (12:30)
[2024-07-19] MEDS ORDERED: ACETAMINOPHEN 325 MG TAB PO PRN (12:30)
[2024-07-19] MEDS ORDERED: OXYCODONE/ACETAMINOPHEN 5-325 1 EACH TABLET PO PRN (13:45)
[2024-07-19] MEDS: HYDROMORPHONE 2MG/ML IV PRN (20:24)
[2024-07-20] MEDS: ZOLPIDEM TARTRATE 5 MG TAB PO PRN (00:15)
[2024-07-20] MEDS: CARISOPRODOL 350 MG TAB PO PRN (00:33)
[2024-07-20] MEDS: OXYCODONE/ACETAMINOPHEN 5-325 1 EACH TABLET PO PRN (00:34)
[2024-07-20 06:24] LABS: BASOPHILS # (AUTO) 0.1 (0.0-0.1); BASOPHILS % 0.4 % (0.0-1.0); EOSINOPHILS % 0.2 % (0.0-6.0); HEMATOCRIT 34.4 % (38.2-49.6); LYMPHOCYTES # (AUTO) 3.2 (1.0-3.2); LYMPHOCYTES % 20.5 % (18.0-39.1); MEAN CORPUSCULAR HEMOGLOBIN 31.4 pg (28-32); MEAN CORPUSCULAR VOLUME 98.3 fL (81-99); MONOCYTES # (AUTO) 1.9 (0.2-0.8); MONOCYTES % 12.1 % (4.4-11.3); NEUTROPHILS # (AUTO) 10.4 (2.1-6.9); NEUTROPHILS % 66.4 % (38.7-80.0); PLATELET COUNT 380 x10e3/uL (140-360); RED CELL DISTRIBUTION WIDTH 12.7 % (11.7-14.4); WHITE BLOOD COUNT 15.61 x10e3/uL (4.8-10.8)
[2024-07-20 06:53] LABS: ALBUMIN/GLOBULIN RATIO 1.2 (0.8-2.0); ANION GAP 13.9 mmol/L (8-16); BILIRUBIN,TOTAL 0.4 mg/dL (0.2-1.2); CALCIUM 8.5 mg/dL (8.4-10.2); CREATININE, SERUM 0.79 mg/dL (0.72-1.25); POTASSIUM 3.9 mmol/L (3.5-5.1); TOTAL PROTEIN 5.5 g/dL (6.5-8.1)
[2024-07-20 08:57] VITALS: BP 136/70; PULSE 71; RESP 15; TEMP 98.1; O2SAT 93
[2024-07-20 11:17] VITALS: BP 116/68; PULSE 86; RESP 15; TEMP 98; O2SAT 93
[2024-07-20 16:01] VITALS: BP 125/71; PULSE 72; RESP 15; TEMP 97.7; O2SAT 93
[2024-07-20 20:00] VITALS: BP 140/76; PULSE 63; RESP 17; TEMP 98; O2SAT 100
[2024-07-21] VITALS (7 sets, daily range): BP systolic 92–154; BP diastolic 64–77; PULSE 66–84; RESP 17–20; TEMP 97.6–98.2; O2SAT 95–100
[2024-07-22] VITALS (8 sets, daily range): BP systolic 92–137; BP diastolic 57–79; PULSE 70–84; RESP 18–20; TEMP 97.7–98.2; O2SAT 95–100
[2024-07-22 07:22] LABS: BASOPHILS # (AUTO) 0.1 (0.0-0.1); BASOPHILS % 1.1 % (0.0-1.0); EOSINOPHILS # (AUTO) 0.5 (0.0-0.4); EOSINOPHILS % 4.3 % (0.0-6.0); HEMATOCRIT 38.2 % (38.2-49.6); HEMOGLOBIN 12.4 g/dL (14.0-18.0); LYMPHOCYTES # (AUTO) 2.9 (1.0-3.2); MEAN CORPUSCULAR HEMOGLOBIN 32.1 pg (28-32); MEAN CORPUSCULAR HGB CONC 32.5 g/dL (31-35); MONOCYTES % 16.3 % (4.4-11.3); NEUTROPHILS # (AUTO) 6.6 (2.1-6.9); PLATELET COUNT 415 x10e3/uL (140-360); RED BLOOD COUNT 3.86 x10e6/uL (4.3-5.7); RED CELL DISTRIBUTION WIDTH 12.8 % (11.7-14.4); WHITE BLOOD COUNT 12.25 x10e3/uL (4.8-10.8)
[2024-07-22 07:37] LABS: ANION GAP 14.3 mmol/L (8-16); CALCIUM 9.3 mg/dL (8.4-10.2); CREATININE, SERUM 0.71 mg/dL (0.72-1.25); POTASSIUM 4.3 mmol/L (3.5-5.1)
[2024-07-23] VITALS (8 sets, daily range): BP systolic 99–119; BP diastolic 63–80; PULSE 67–92; RESP 17–18; TEMP 97.8–98.8; O2SAT 95–100
[2024-07-23] MEDS ORDERED: OXYCODONE/ACETAMINOPHEN 5-325 1 EACH TABLET PO PRN (12:15)
[2024-07-23] MEDS: METHYLPHENIDATE HCL 10 MG TAB PO SCH (12:42)
[2024-07-24 03:08] VITALS: BP 120/75; PULSE 63; RESP 18; TEMP 97.8; O2SAT 100
[2024-07-24 07:49] VITALS: BP 118/81; PULSE 66; RESP 16; TEMP 97.9; O2SAT 95
[2024-07-24 08:36] VITALS: BP 118/81; PULSE 66; RESP 16; TEMP 97.9; O2SAT 95
[2024-07-24 11:25] VITALS: BP 113/66; PULSE 83; RESP 23; TEMP 98.5; O2SAT 92
[2024-07-24] MEDS ORDERED: METHYLPHENIDATE HCL 10 MG TAB PO SCH (17:00)
[2024-07-25] MEDS ORDERED: METHYLPHENIDATE HCL 10 MG TAB PO SCH (06:00)
== END 2024-07-24 15:43 | DRG 472 ==
LOC: ER 09:45 → ERHOLD 12:49 → MED/SURG2 14:35
PROVIDERS: ADMIT Internal Medicine; ATTEND Internal Medicine
PROC: 0DB68ZZ Excision of Stomach, Via Natural or Artificial Opening Endoscopic (ICD-10-PCS; 2024-07-13)
PROC: 0DB78ZZ Excision of Stomach, Pylorus, Via Natural or Artificial Opening Endoscopic (ICD-10-PCS; 2024-07-13)
PROC: 0DC38ZZ Extirpation of Matter from Lower Esophagus, Via Natural or Artificial Opening Endoscopic (ICD-10-PCS; 2024-07-13)
PROC: 0D757ZZ Dilation of Esophagus, Via Natural or Artificial Opening (ICD-10-PCS; 2024-07-13)
PROC: 02HV33Z Insertion of Infusion Device into Superior Vena Cava, Percutaneous Approach (ICD-10-PCS; 2024-07-18)
PROC: 01N10ZZ Release Cervical Nerve, Open Approach (ICD-10-PCS; 2024-07-19)
PROC: 0RG2070 Fusion of 2 or more Cervical Vertebral Joints with Autologous Tissue Substitute, Anterior Approach, Anterior Column, Open Approach (ICD-10-PCS; principal; 2024-07-19 09:52)
DX: M47.12 Other spondylosis with myelopathy, cervical region (principal); E44.0 Moderate protein-calorie malnutrition; N39.0 Urinary tract infection, site not specified; R64 Cachexia; Z68.1 Body mass index [BMI] 19.9 or less, adult; K22.10 Ulcer of esophagus without bleeding; R62.7 Adult failure to thrive; R13.10 Dysphagia, unspecified; K26.9 Duodenal ulcer, unspecified as acute or chronic, without hemorrhage or perforation; K22.2 Esophageal obstruction; E16.2 Hypoglycemia, unspecified; K29.70 Gastritis, unspecified, without bleeding; D64.9 Anemia, unspecified; E87.6 Hypokalemia; G62.9 Polyneuropathy, unspecified; R53.81 Other malaise; M62.81 Muscle weakness (generalized); K21.9 Gastro-esophageal reflux disease without esophagitis; R11.2 Nausea with vomiting, unspecified; K59.00 Constipation, unspecified; F32.A Depression, unspecified; R29.6 Repeated falls; T18.128A Food in esophagus causing other injury, initial encounter; Z87.820 Personal history of traumatic brain injury; Z98.1 Arthrodesis status; Z89.222 Acquired absence of left upper limb above elbow; F17.200 Nicotine dependence, unspecified, uncomplicated
CPT/HCPCS: 36415; 36569; 43239; 43450; 45379; 70450; 70551; 71045; 72040; 72129; 72132; 72141; 72146; 72148; 76000; 80048; 80053; 80307; 80320; 81001; 82550; 82948; 83735; 84484; 85025; 85610; 85730; 88304; 88305; 88311; 93005; 93306; 94660; 95819; 99252; 99284; C1713; J0330; J0690; J0696; J1100; J1171; J2003; J2250; J2270; J2371; J2405; J2470; J2765; J7030; J7042; J7050; Q9967